=== PATIENT | female | born 1995 | race Caucasian/White ===

== ENCOUNTER 2024-01-28 00:36 | Emergency (ER) | payer OTHER ==
[2024-01-28 00:53] LABS: BILIRUBIN,URINE NEGATIVE (NEGATIVE); GLUCOSE, URINE (UA) NEGATIVE (NEGATIVE); KETONES,URINE (UA) NEGATIVE (NEGATIVE); LEUKOCYTE ESTERASE, URINE MODERATE (NEGATIVE); NITRITE,URINE NEGATIVE (NEGATIVE); OCCULT BLOOD,URINE LARGE (NEGATIVE); PROTEIN,URINE TRACE mg/dL (NEGATIVE); UROBILINOGEN,URINE 0.2 (NORMAL) E.U./dL (NORMAL)
[2024-01-28 00:54] LABS: CLARITY,URINE HAZY (CLEAR)
[2024-01-28 00:55] LABS: HCG UR QUAL NEGATIVE
[2024-01-28 00:58] LABS: WBC,URINE >25 /HPF (0-5)
[2024-01-28 00:59] LABS: BACTERIA,URINE Few /HPF (None Seen); SQUAMOUS EPITHELIAL CELL,UR FEW Squamous (<= Few)
--- NOTE | 2024-01-28 01:02 | ED Physician Documentation ---
PD HPI FEMALE - Stated complaint Stated Complaint: - Chief complaint Chief Complaint: Abd Pain - History obtained from History obtained from: Patient - Additional information Additional information: HPI from patient. Patient complains of 1 week of burning dysuria, urinary frequency, scant hematuria (patient says when she wipes after urinating, "the toilet paper is pink"), and sensation of incomplete voiding. She says these symptoms are similar to previous UTIs that she has experienced. Denies fever, back pain. Review of Systems GI: denies: Abdominal Pain, Nausea, Vomiting : reports: Dysuria, Frequency, Hematuria. denies: Now [facility] PD PAST MEDICAL HISTORY - Past Medical History Past Medical History: No - Past Surgical History Past Surgical History: Yes - Present Medications Home Medications: Ambulatory Orders Medication Instructions Recorded Confirmed Permethrin 5% Cream 60 gm TP ONCE #120 cream..g. 02/04/14 diphenhydrAMINE HCl [Benadryl] 25 - 50 mg PO Q6HR PRN #30 capsule 02/04/14 Nitrofurantoin [Macrobid] 100 mg PO BID #10 cap 01/28/24 Phenazopyridine HCl [Pyridium] 200 mg PO TID PRN #6 tablet 01/28/24 - Allergies Allergies/Adverse Reactions: Allergies Allergy/AdvReac Type Severity Reaction Status Date / Time Penicillins Allergy Unknown Verified 02/04/14 16:24 - Social History Does the pt smoke?: Yes Smoking Status: Current every day smoker Does the pt drink ETOH?: Yes Does the pt have substance abuse?: No - POLST Patient has POLST: No PD ED PE NORMAL - Vitals Vital signs reviewed: Yes - General General: Alert and oriented X 3, No acute distress, Well developed/nourished - Abdomen Abdomen: Soft, Non tender - Back Back: No CVA TTP Results - Vitals Vitals: Vital Signs - 24 hr 01/28/24 00:44 Temperature 36.1 C L Heart Rate 72 Respiratory 16 Rate Blood Pressure 145/90 H O2 Saturation 97 Oxygen O2 Source Room air - Labs Labs: Laboratory Tests 01/28/24 00:45 Urine Color YELLOW Urine Clarity HAZY Urine pH 6.0 Ur Specific [place] 1.015 Urine Protein TRACE Urine Glucose (UA) NEGATIVE Urine Ketones NEGATIVE Urine Occult Blood LARGE H Urine Nitrite NEGATIVE Urine Bilirubin NEGATIVE Urine Urobilinogen 0.2 (NORMAL) Ur Leukocyte Esterase MODERATE H Urine RBC 6-10 H Urine WBC >25 H Ur Squamous Epith Cells FEW Squamous Urine Bacteria Few Urine Culture Comments INDICATED Urine HCG, Qual NEGATIVE PD Medical Decision Making - ED course Complexity details: reviewed results, considered differential, d/w patient ED course: Results of UA are consistent with UTI. She was given 100 mg of Macrobid p.o. along with 100 mg Pyridium p.o., and provided prescriptions (electronically submitted to her pharmacy of choice) for a 5-day course of Macrobid and a 2-day course of Pyridium. Test results, diagnosis, prognosis, return precautions, and expected course of illness are all discussed with the patient. Departure - Departure Disposition: 01 Home, Self Care Clinical Impression: Urinary tract infection Condition: Good Instructions: ED UTI Cystitis Female Prescriptions: Nitrofurantoin [Macrobid] 100 mg PO BID #10 cap Phenazopyridine HCl [Pyridium] 200 mg PO TID PRN #6 tablet PRN Reason: dysuria Comments: Your urinalysis results are consistent with UTI. For this, you were given the first dose of antibiotic (nitrofurantoin) in the emergency department and I have electronically submitted a prescription for a 5-day course of this antibiotic to the [facility] pharmacy in [place]. You were also given a dose of Pyridium and I have electronically submitted a 2-day course of this medication to the [facility] pharmacy. Pyridium helps reduce the symptoms of urinary tract infection, such as burning and frequency. Limit the use of the Pyridium to 2 days only.
[2024-01-28] MEDS: PHENAZOPYRIDINE 100 MG TABLET PO STA (01:25)
[2024-01-28] MEDS: NITROFURANTOIN MACRO 100 MG CAPSULE PO STA (01:25)
[2024-01-28 01:37] VITALS: BP 140/88; O2SAT 98
== END 2024-01-28 01:38 | disposition home or self-care (01) ==
LOC: ED 00:36
DX: N39.0 Urinary tract infection, site not specified (principal); F17.200 Nicotine dependence, unspecified, uncomplicated
CPT/HCPCS: 81001; 81025; 87086; 99283; A9270